=== PATIENT | female | born 1960 | race Caucasian/White ===

== ENCOUNTER 2018-07-03 05:44 | Day surgery (SDC) | payer BC ==
[2018-07-03] MEDS ORDERED: MIDAZOLAM 1 MG/ML 2 ML INJ (07:55)
[2018-07-03] MEDS ORDERED: FENTAnyl 50 MCG/ML VIAL (07:55)
== END 2018-07-03 13:35 | disposition home or self-care (01) ==
LOC: GIL 05:44
DX: K29.50 Unspecified chronic gastritis without bleeding (principal); K44.9 Diaphragmatic hernia without obstruction or gangrene; K21.9 Gastro-esophageal reflux disease without esophagitis; I10 Essential (primary) hypertension; E78.5 Hyperlipidemia, unspecified; E03.9 Hypothyroidism, unspecified; Z79.82 Long term (current) use of aspirin
CPT/HCPCS: 43239; 88305; 88312

== ENCOUNTER 2019-03-26 07:19 | Day surgery (SDC) | payer BC ==
[2019-03-26] MEDS ORDERED: MIDAZOLAM 1 MG/ML 2 ML INJ ×3 (11:20→14:01)
[2019-03-26] MEDS ORDERED: FENTAnyl 50 MCG/ML VIAL (11:21)
== END 2019-03-26 13:23 | disposition home or self-care (01) ==
LOC: GIL 07:19
DX: K92.1 Melena (principal); K64.8 Other hemorrhoids; I10 Essential (primary) hypertension
CPT/HCPCS: 45378